=== PATIENT | female | born 2000 | race Two or more races ===

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

== ENCOUNTER 2022-03-09 02:12 | Emergency (ER) | payer OTHER ==
[2022-03-09 02:44] VITALS: BP 136/89; PULSE 100
[2022-03-09] MEDS ORDERED: ACETAMINOPHEN 1000 MG/100 ML BAG IVPB ONE (02:44)
[2022-03-09 02:49] VITALS: TEMP 97.6; BMI 26.6
[2022-03-09] MEDS ORDERED: ACETAMINOPHEN INJECTION 100 ML IVPB ONE (03:10)
[2022-03-09 03:15] LABS: BASO % 0.5 % (0-2.0); EOS % 0.5 % (0-4.5); HEMATOCRIT 35.3 % (32.4-45.2); HEMOGLOBIN 11.7 GM/dL (10.7-15.3); LYMPH % 23.2 % (8-40); MCH 25.6 pg (25.7-33.7); MCHC 33.2 g/dl (32.0-36.0); MEAN CELL VOLUME 77.1 fl (80-96); MEAN PLT VOLUME 8.5 fl (7.5-11.1); MONO % 7.9 % (3.8-10.2); NEUT % 67.9 % (42.8-82.8); PLATELET COUNT 227 10^3/uL (134-434); RBC 4.58 M/mm3 (3.60-5.2); RDW 15.5 % (11.6-15.6); WHITE BLOOD COUNT 7.6 K/mm3 (4.0-10.0)
[2022-03-09 03:22] LABS: INR 1.09 (0.83-1.09); PROTHROMBIN TIME (PATIENT) 12.6 SEC (9.7-13.0)
[2022-03-09 03:24] LABS: ACTIVATED PTT 31.6 SECONDS (25.2-36.5)
[2022-03-09 03:41] LABS: CHLORIDE 105 mmol/L (98-107); SODIUM 138 mmol/L (136-145)
[2022-03-09 03:42] LABS: CALCIUM 9.2 mg/dL (8.5-10.1)
[2022-03-09 03:43] LABS: ANION GAP 8 MMOL/L (8-16); BLOOD UREA NITROGEN 11.2 mg/dL (7-18); CO2 25 mmol/L (21-32); GLUCOSE,RANDOM 91 mg/dL (74-106)
[2022-03-09 03:46] LABS: CREATININE 0.9 mg/dL (0.55-1.3); SGOT/AST 31 U/L (15-37); SGPT/ALT 26 U/L (13-61)
[2022-03-09 03:48] LABS: BILIRUBIN,TOTAL 0.5 mg/dL (0.2-1); TOT PROT 7.3 g/dl (6.4-8.2)
[2022-03-09 03:49] LABS: ALK PHOS 65 U/L (45-117)
[2022-03-09 03:52] LABS: METHADONE, UR NEGATIVE (NEGATIVE); OPIATES, URI NEGATIVE (NEGATIVE); URINE BENZODIAZEPINES NEGATIVE (NEGATIVE)
[2022-03-09 03:53] LABS: PHENCYCLIDINE,URINE NEGATIVE (NEGATIVE)
[2022-03-09 04:30] LABS: COCAINE, UR NEGATIVE (NEGATIVE); URINE AMPHETAMINES NEGATIVE (NEGATIVE); URINE BARBITURATES NEGATIVE (NEGATIVE)
== END 2022-03-09 06:47 | disposition home or self-care (01) ==
LOC: JER 02:12
PROC: 3E033GC Introduction of Other Therapeutic Substance into Peripheral Vein, Percutaneous Approach (ICD-10-PCS; principal; 2022-03-09)
DX: S89.91XA Unspecified injury of right lower leg, initial encounter (principal); V29.50XA Motorcycle passenger injured in collision with unspecified motor vehicles in traffic accident, initial encounter
CPT/HCPCS: 36415; 70450-TC; 71260-TC; 72125-TC; 73552-TC-RT-FY; 73590-TC-RT-FY; 73610-TC-RT-FY; 73630-TC-RT-FY; 74177-TC; 80053; 80307; 84703; 85025; 85610; 85730; 86850; 86900; 86901; 93005; 93010; 99285-25